=== PATIENT | male | born 1965 | race Caucasian/White ===

== ENCOUNTER 2018-01-28 17:01 | Emergency (ER) | payer BC ==
--- NOTE | 2018-01-28 18:23 | ED ---
General Adult HPI - General Source: patient, RN notes reviewed Mode of arrival: ambulatory Limitations: no limitations <Heidy Duke - Last Filed: 01/28/18 22:55> <Rita Raymond - Last Filed: 01/29/18 13:17> - General Chief complaint: Extremity Problem,Nontraumatic Stated complaint: Foot swelling/sob Time Seen by Provider: 01/28/18 17:25 - History of Present Illness Initial comments: This is a 52-year-old male with past medical history of type 2 diabetes controlled with metformin who presents today for chief complaint of left lower extremity swelling 1 month. Patient states that for the past month he has been experiencing left foot swelling, fatigue and some shortness of breath. He states that the shortest of breath is not with exertion or activity however it does occur after the activities are done. Patient states that he has been working a lot lately and on his feet. The swelling of the left foot comes and goes, tends to be better in the morning and worsening evenings. He occasionally has swelling of the right foot. Patient denies any chest pain, palpitations, cough, hemoptysis, left or right calf pain, left or right calf swelling or erythema, patient denies any paresthesias of the upper extremities, jaw pain, difficulty breathing, wheezing, recent travel, hx of blood clots, recent surgery. Due to the duration of the swelling . Patient felt as though he should go to the emergency department . Upon presentation, vital signs within normal limits. like a In addition patient denies any recent fever, chills , , back pain, abdominal pain, nausea or vomiting, numbness or tingling, dysuria or hematuria, constipation or diarrhea, headaches or visual changes, or any other complaints. (Heidy Duke) - Related Data Home Medications Medication Instructions Recorded Confirmed metFORMIN HCL ER [Glucophage Xr] 500 mg PO DAILY 01/28/18 01/28/18 Allergies Allergy/AdvReac Type Severity Reaction Status Date / Time No Known Allergies Allergy Verified 01/28/18 17:19 Review of Systems ROS Other: All systems not noted in ROS Statement are negative. Constitutional: Denies: fever, chills Eyes: Denies: eye pain, vision change ENT: Denies: ear pain, throat pain Respiratory: Denies: cough, dyspnea, wheezes, hemoptysis Cardiovascular: Reports: edema. Denies: chest pain, palpitations Endocrine: Reports: as per HPI, fatigue Gastrointestinal: Denies: abdominal pain, nausea, vomiting, diarrhea, constipation Genitourinary: Denies: urgency, dysuria, frequency, hematuria Musculoskeletal: Denies: back pain Skin: Denies: rash, lesions Neurological: Denies: headache, numbness, paresthesias, confusion, abnormal gait <Heidy Duke Tee - Last Filed: 01/28/18 22:55> ROS Other: All systems not noted in ROS Statement are negative. <Rita Raymond P - Last Filed: 01/29/18 13:17> ROS Statement: Those systems with pertinent positive or pertinent negative responses have been documented in the HPI. Past Medical History Past Medical History: Diabetes Mellitus Additional Past Medical History / Comment(s): back pain History of Any Multi-Drug Resistant Organisms: None Reported Past Surgical History: No Surgical Hx Reported Past Psychological History: No Psychological Hx Reported Smoking Status: Never smoker Past Alcohol Use History: None Reported Past Drug Use History: None Reported <Skye Dukehan L - Last Filed: 01/28/18 22:55> General Exam Limitations: no limitations <Heidy Duke L - Last Filed: 01/28/18 22:55> <Rita Raymond P - Last Filed: 01/29/18 13:17> - General Exam Comments Initial Comments: General: The patient is awake and alert, in no distress, and does not appear acutely ill. Eye: Pupils are equal, round and reactive to light, extra-ocular movements are intact. No nystagmus. There is normal conjunctiva bilaterally. No signs of icterus. Ears, nose, mouth and throat: There are moist mucous membranes and no oral lesions. Neck: The neck is supple, there is no tenderness or JVD. Cardiovascular: There is a regular rate and rhythm. No murmur, rub or gallop is appreciated. (-) [place] Respiratory: Lungs are clear to auscultation, respirations are non-labored, breath sounds are equal. No wheezes, stridor, rales, or rhonchi. Musculoskeletal: Normal ROM, no tenderness. Strength 5/5 of UE/LE. Sensation intact. Pulses equal bilaterally 2+ DP, radial. Full foot and ankle ROM and strength. No tenderness to palpation over the left leg, foot or ankle. Neurological: A&O x 3. CN II-XII intact, There are no obvious motor or sensory deficits. Coordination appears grossly intact. Speech is normal. Skin: Skin is warm and dry and no rashes or lesions are noted. There is +2 pitting edema of the left forefoot, examination of the right in unremarkable. There is no pre-tibial or calf swelling. Psychiatric: Cooperative, appropriate mood & affect, normal judgment. (Heidy Duke) Vital Signs 01/28/18 01/28/18 17:16 20:00 Temperature 98.2 F 98.0 F Pulse Rate 70 64 Respiratory 18 16 Rate Blood Pressure 129/84 134/79 O2 Sat by Pulse 98 98 Oximetry EKG Findings - EKG Comments: EKG Findings:: Normal sinus rhythm, no ST elevation or T-wave inversion. Ventricular rate 65 bpm, WA interval 156 ms, QRS duration 98 ms, QT 0 96 ms, QTC 411ms. P-R-T axes 34-19-9 <Heidy Duke - Last Filed: 01/28/18 22:55> Medical Decision Making - Lab Data Result diagrams: 01/28/18 18:10 01/28/18 18:10 <Heidy Duke - Last Filed: 01/28/18 22:55> - Lab Data Result diagrams: 01/28/18 18:10 01/28/18 18:10 <Rita Raymond - Last Filed: 01/29/18 13:17> - Medical Decision Making This is a 52-year-old male with past medical history of type 2 diabetes controlled with metformin who presents today for chief complaint of left lower extremity swelling 1 month. Patient states that for the past month he has been experiencing left foot swelling, fatigue and some shortness of breath. He states that the shortest of breath is not with exertion or activity however it does occur after the activities are done. Patient states that he has been working a lot lately and on his feet. The swelling of the left foot comes and goes, tends to be better in the morning and worsening evenings. He occasionally has swelling of the right foot. Patient denies any chest pain, palpitations, cough, hemoptysis, left or right calf pain, left or right calf swelling or erythema, patient denies any paresthesias of the upper extremities, jaw pain, difficulty breathing, wheezing. Due to the duration of the swelling . Patient felt as though he should resent to the emergency department . Upon presentation, vital signs within normal limits. EKG, CBC, CMP, Mg, Trop, CXR, PT /PTT/INR, D-dimer and left LE US doppler were obtained all of which returned. Pt was seen by Dr. Raymond and the case was discussed in detail. At this time we feel the pt is stable for discharge & is to follow-up with PCP in 1-2 days. Pt agrees with plan. Pt was instructed to return to the ER if symptoms change or worsen. Pt agreed, VS stable upon d/c. (Heidy Duke) Evaluated the patient independently after the initial evaluation by the PA. Patient had presented with left lower extremity pitting edema 1 month duration. Patient reports this edema resolves with elevation and rest. Patient's workup in the ER revealed normal labs, normal venous Dopplers. Upon my evaluation the patient had been resting for a couple of hours in the ER bed, his edema had nearly resolved and he was feeling quite well. He was able to provide me with pictures of his foot at its most swollen state. Patient's foot was neurovascularly intact, no pain, only trace edema. I discussed the negative workup with the patient and advised him to follow up with his primary care physician for further evaluation. All questions pertaining care were answered best my ability patient was discharged home in stable condition. (Rita Raymond) - Lab Data Lab Results 01/28/18 01/28/18 01/28/18 Range/Units 18:10 18:10 18:10 WBC 6.2 (3.8-10.6) k/uL RBC 5.01 (4.30-5.90) m/uL Hgb 14.1 (13.0-17.5) gm/dL Hct 41.7 (39.0-53.0) % MCV 83.2 (80.0-100.0) fL MCH 28.2 (25.0-35.0) pg MCHC 33.9 (31.0-37.0) g/dL RDW 13.8 (11.5-15.5) % Plt Count 188 (150-450) k/uL Neutrophils % 61 % Lymphocytes % 28 % Monocytes % 6 % Eosinophils % 1 % Basophils % 1 % Neutrophils # 3.7 (1.3-7.7) k/uL Lymphocytes # 1.7 (1.0-4.8) k/uL Monocytes # 0.4 (0-1.0) k/uL Eosinophils # 0.1 (0-0.7) k/uL Basophils # 0.0 (0-0.2) k/uL PT 10.3 (9.0-12.0) sec INR 1.1 (<1.2) APTT 23.8 (22.0-30.0) sec D-Dimer 0.29 (<0.60) mg/L FEU Sodium 141 (137-145) mmol/L Potassium 4.2 (3.5-5.1) mmol/L Chloride 106 (98-107) mmol/L Carbon Dioxide 28 (22-30) mmol/L Anion Gap 7 mmol/L BUN 17 (9-20) mg/dL Creatinine 0.90 (0.66-1.25) mg/dL Est GFR (CKD-EPI)AfAm >90 (>60 ml/min/1.73 sqM) Est GFR (CKD-EPI)NonAf >90 (>60 ml/min/1.73 sqM) Glucose 117 H (74-99) mg/dL Calcium 9.4 (8.4-10.2) mg/dL Magnesium 1.9 (1.6-2.3) mg/dL Total Bilirubin 0.6 (0.2-1.3) mg/dL AST 22 (17-59) U/L ALT 27 (21-72) U/L Alkaline Phosphatase 52 (38-126) U/L Troponin I (0.000-0.034) ng/mL Total Protein 6.7 (6.3-8.2) g/dL Albumin 4.2 (3.5-5.0) g/dL 01/28/18 Range/Units 18:10 WBC (3.8-10.6) k/uL RBC (4.30-5.90) m/uL Hgb (13.0-17.5) gm/dL Hct (39.0-53.0) % MCV (80.0-100.0) fL MCH (25.0-35.0) pg MCHC (31.0-37.0) g/dL RDW (11.5-15.5) % Plt Count (150-450) k/uL Neutrophils % % Lymphocytes % % Monocytes % % Eosinophils % % Basophils % % Neutrophils # (1.3-7.7) k/uL Lymphocytes # (1.0-4.8) k/uL Monocytes # (0-1.0) k/uL Eosinophils # (0-0.7) k/uL Basophils # (0-0.2) k/uL PT (9.0-12.0) sec INR (<1.2) APTT (22.0-30.0) sec D-Dimer (<0.60) mg/L FEU Sodium (137-145) mmol/L Potassium (3.5-5.1) mmol/L Chloride (98-107) mmol/L Carbon Dioxide (22-30) mmol/L Anion Gap mmol/L BUN (9-20) mg/dL Creatinine (0.66-1.25) mg/dL Est GFR (CKD-EPI)AfAm (>60 ml/min/1.73 sqM) Est GFR (CKD-EPI)NonAf (>60 ml/min/1.73 sqM) Glucose (74-99) mg/dL Calcium (8.4-10.2) mg/dL Magnesium (1.6-2.3) mg/dL Total Bilirubin (0.2-1.3) mg/dL AST (17-59) U/L ALT (21-72) U/L Alkaline Phosphatase (38-126) U/L Troponin I <0.012 (0.000-0.034) ng/mL Total Protein (6.3-8.2) g/dL Albumin (3.5-5.0) g/dL Disposition Is patient prescribed a controlled substance at d/c from ED?: No Time of Disposition: 19:46 <Heidy Duke - Last Filed: 01/28/18 22:55> <Rita Raymond P - Last Filed: 01/29/18 13:17> Clinical Impression: Edema of left foot Disposition: HOME SELF-CARE Condition: Good Instructions: Leg Edema (ED) Additional Instructions: Please follow-up with family doctor in the next 2 days of symptoms have not improved. Please return to emergency room if the symptoms increase or worsen or for any other concerns. Referrals: Víctor Clark DO [Primary Care Provider] - 1-2 days
[2018-01-28 18:27] LABS: Basophils % (A) 1 %; Eosinophils # (A) 0.1 k/uL (0-0.7); Eosinophils % (A) 1 %; HCT 41.7 % (39.0-53.0); HGB 14.1 gm/dL (13.0-17.5); Lymphocytes # (A) 1.7 k/uL (1.0-4.8); Lymphocytes % (A) 28 %; MCH 28.2 pg (25.0-35.0); MCHC 33.9 g/dL (31.0-37.0); MCV 83.2 fL (80.0-100.0); Mean Platelet Volume 8.2; Monocytes # (A) 0.4 k/uL (0-1.0); Monocytes % (A) 6 %; Neutrophils # (A) 3.7 k/uL (1.3-7.7); Neutrophils % (A) 61 %; Platelet Count 188 k/uL (150-450); RBC 5.01 m/uL (4.30-5.90); RDW 13.8 % (11.5-15.5); WBC 6.2 k/uL (3.8-10.6)
--- NOTE | 2018-01-28 18:37 | XR ---
EXAMINATION TYPE: XR chest 2V DATE OF EXAM: 01/28/2018 COMPARISON: NONE HISTORY: Fatigue and shortness of breath TECHNIQUE: Frontal and lateral views of the chest are obtained. FINDINGS: There is no focal air space opacity, pleural effusion, or pneumothorax seen. The cardiac silhouette size is within normal limits. The osseous structures are intact. IMPRESSION: No acute cardiopulmonary process.
[2018-01-28 18:38] LABS: ALT 27 U/L (21-72); AST 22 U/L (17-59); Albumin 4.2 g/dL (3.5-5.0); Alkaline Phosphatase 52 U/L (38-126); Anion Gap 7 mmol/L; Blood Urea Nitrogen 17 mg/dL (9-20); Calcium 9.4 mg/dL (8.4-10.2); Carbon Dioxide 28 mmol/L (22-30); Chloride 106 mmol/L (98-107); Glucose 117 mg/dL (74-99); Magnesium 1.9 mg/dL (1.6-2.3); Potassium 4.2 mmol/L (3.5-5.1); Sodium 141 mmol/L (137-145); Total Bilirubin 0.6 mg/dL (0.2-1.3); Total Protein 6.7 g/dL (6.3-8.2)
[2018-01-28 18:50] LABS: D-Dimer 0.29 mg/L FEU (<0.60); INR 1.1 (<1.2); Partial Thromboplastin Time 23.8 sec (22.0-30.0); Prothrombin Time 10.3 sec (9.0-12.0)
--- NOTE | 2018-01-28 19:04 | US ---
EXAMINATION TYPE: US venous doppler duplex LE LT DATE OF EXAM: 01/28/2018 6:41 PM COMPARISON: NONE CLINICAL HISTORY: Pain. Foot swelling x 1 month off and on. No leg swelling. No redness. No hx of blood clots. Not on blood thinners. SIDE PERFORMED: Left TECHNIQUE: The lower extremity deep venous system is examined utilizing real time linear array sonog aylin with graded compression, doppler sonography and color-flow sonography. VESSELS IMAGED: External Iliac Vein (EIV) Common Femoral Vein Deep Femoral Vein Greater Saphenous Vein * Femoral Vein Popliteal Vein Small Saphenous Vein * Proximal Calf Veins (* superficial vessels) Left Leg: Negative for DVT Grayscale, color doppler, spectral doppler imaging performed of the deep veins of the lower extremiti es. There is normal flow, compressibility, vascular waveforms. IMPRESSION: No evident deep venous thrombosis at or above the left knee. Follow-up as indicated.
[2018-01-28 20:10] VITALS: BP 134/79; PULSE 64; RESP 16; TEMP 98
== END 2018-01-28 20:00 | disposition home or self-care (01) ==
LOC: EC 17:01
DX: R60.0 Localized edema (principal); R53.83 Other fatigue; R06.02 Shortness of breath; E11.9 Type 2 diabetes mellitus without complications; Z79.84 Long term (current) use of oral hypoglycemic drugs
CPT/HCPCS: 36415; 71046; 80053; 83735; 84484; 85025; 85379; 85610; 85730; 93005; 99284